=== PATIENT | male | born 1955 | race Caucasian/White ===

== ENCOUNTER 2018-04-09 14:36 | Inpatient (IN) | payer SELFPAY ==
[~2018-04-09 14:36] MED LIST: ISOVUE-370 76%-LOCM 1 ML ONE
[2018-04-09 15:25] LABS: #Monocytes 1.6 thou/uL (0.11-0.59); #Neutrophils 16.3 thou/uL (1.40-6.50); %Eosinophils 0.2 % (0.0-10.0); %Lymphocytes 5.4 % (21.0-51.0); %Monocytes 8.5 % (0.0-10.0); %Neutrophils 85.8 % (42.0-75.0); Hemoglobin 15.6 g/dL (14.0-18.0); Mean Corpuscular HGB CONC 35.7 g/dL (32.0-36.0); Mean Corpuscular Hemoglobin 33.5 pg (27.0-31.0); Mean Platelet Volume 8.3 fL (7.4-10.4); Platelet Count 167 thou/uL (130-400); RBC Distribution Width 11.8 % (11.5-14.5); Red Blood Cell (RBC) Count 4.65 mill/uL (4.70-6.10)
--- NOTE | 2018-04-09 15:33 | RAD ---
1 VIEW CHEST: Date: 04/09/18 HISTORY: Dizziness. Weakness. Back pain. COMPARISON: None. FINDINGS: Normal cardiac silhouette. Pulmonary vessels and hilum are normal. No consolidation or mass. No pneum othorax or osseous abnormalities. IMPRESSION: No acute cardiopulmonary process. POS: JOSE ALFREDO
[2018-04-09 15:51] LABS: ALT (SGPT) 23 U/L (8-55); AST (SGOT) 26 U/L (5-34); Albumin 4.5 g/dL (3.4-4.8); Alkaline Phosphatase 52 U/L (40-150); Anion Gap 15 mmol/L (10-20); BUN (Urea Nitrogen) 17 mg/dL (8.4-25.7); Bilirubin, Total 0.7 mg/dL (0.2-1.2); Calc. Creatinine Clearance 0 mL/min (70-130); Calcium 9.1 mg/dL (7.8-10.44); Carbon Dioxide 19 mmol/L (23-31); Chloride 108 mmol/L (98-107); Estimated GFR-MDRD 66; Globulin 3.1 g/dL (2.4-3.5); Glucose 130 mg/dL (80-115); Potassium 3.4 mmol/L (3.5-5.1); Protein, Total 7.6 g/dL (5.8-8.1); Sodium 139 mmol/L (136-145)
[2018-04-09 15:54] LABS: CKMB 1.6 ng/mL (0-6.6); Troponin I Less than 0.010 ng/mL (< 0.028)
[2018-04-09] MEDS ORDERED: traMADol HCl 50 MG TAB ONE (16:31)
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
[2018-04-09 19:30] LABS: Lactic Acid 1.5 mmol/L (0.5-2.2)
[2018-04-09] MEDS ORDERED: HYDROcodone/Acetaminophen 5/325 mg Tablet ONE (22:14)
[2018-04-09] MEDS ORDERED: Acetaminophen 325 MG TAB PO PRN (23:08)
[2018-04-09] MEDS ORDERED: Bisacodyl 5 MG TAB PO PRN (23:08)
[2018-04-09] MEDS ORDERED: Fleet Enema 133 ML BOT PR PRN (23:08)
[2018-04-09] MEDS ORDERED: Ondansetron HCl/PF 4 MG/2 ML Vial IVP PRN (23:08)
[2018-04-09] MEDS ORDERED: Milk Of Magnesia 30 ML UDCUP PO PRN (23:08)
[2018-04-09] MEDS ORDERED: tiZANidine HCl 4 MG TAB PO SCH (23:30)
[2018-04-09 23:33] VITALS: BMI 25.7
[2018-04-09 23:44] LABS: INR-International Normal Ratio 1.1; PTT 26.6 SEC (22.9-36.1); Prothrombin Time 14.2 SEC (12.0-14.7)
[2018-04-09] MEDS: Sodium Chloride 0.9% 1,000 ML IV SCH (23:58)
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
[2018-04-10 05:23] LABS: #Lymphocytes 1.1 thou/uL (1.20-3.40); #Monocytes 0.9 thou/uL (0.11-0.59); #Neutrophils 7.7 thou/uL (1.40-6.50); %Basophils 0.1 % (0.0-1.0); %Eosinophils 0.2 % (0.0-10.0); %Lymphocytes 11.1 % (21.0-51.0); %Neutrophils 79.5 % (42.0-75.0); Hemoglobin 14.7 g/dL (14.0-18.0); Mean Corpuscular HGB CONC 36.4 g/dL (32.0-36.0); Mean Corpuscular Hemoglobin 34.1 pg (27.0-31.0); Mean Corpuscular Volume 93.7 fL (78.0-98.0); Mean Platelet Volume 8.5 fL (7.4-10.4); Platelet Count 147 thou/uL (130-400); RBC Distribution Width 11.7 % (11.5-14.5); Red Blood Cell (RBC) Count 4.32 mill/uL (4.70-6.10); White Blood Cell (WBC) Count 9.7 thou/uL (4.8-10.8)
[2018-04-10 05:31] LABS: Anion Gap 16 mmol/L (10-20); BUN (Urea Nitrogen) 12 mg/dL (8.4-25.7); Calc. Creatinine Clearance 82 mL/min (70-130); Calcium 8.4 mg/dL (7.8-10.44); Carbon Dioxide 20 mmol/L (23-31); Chloride 107 mmol/L (98-107); Estimated GFR-MDRD 76; Glucose 107 mg/dL (80-115); Potassium 3.7 mmol/L (3.5-5.1); Sodium 139 mmol/L (136-145)
[2018-04-10] MEDS: HYDROcodone/Acetaminophen 5/325 mg Tablet PO PRN ×2 (06:02→11:49)
[2018-04-10] MEDS: Docusate 100 MG CAP PO SCH ×2 (08:50→20:28)
[2018-04-10] MEDS: tiZANidine HCl 4 MG TAB PO SCH ×3 (08:50→20:28)
[2018-04-10] MEDS ORDERED: Famotidine 20 MG TAB PO PRN (11:04)
[2018-04-10] MEDS ORDERED: Eucerin (Mineral Oil/Petrolatum,White) 30 gm Jar TOP PRN (11:04)
[2018-04-10] MEDS ORDERED: Chloraseptic Spray 180 ml Bottle PO PRN (11:04)
[2018-04-10] MEDS ORDERED: Sodium Chloride 0.65% Nasal 44 ML BOT EA NARE PRN (11:04)
[2018-04-10] MEDS ORDERED: Artificial Tears 18 DROP/0.9 ML EA EYE PRN (11:04)
[2018-04-10] MEDS ORDERED: Ondansetron ODT 4 MG TAB PO PRN (11:04)
[2018-04-10] MEDS ORDERED: Loratadine 10 MG TAB PO PRN (11:04)
[2018-04-10] MEDS ORDERED: Loperamide HCl 2 MG CAP PO PRN (11:04)
[2018-04-10] MEDS ORDERED: Mag-Al 1200 mg/1200 mg/30 ML UDCUP PO PRN (11:04)
[2018-04-10] MEDS ORDERED: Temazepam 15 MG CAP PO PRN (11:04)
[2018-04-10] MEDS ORDERED: hydrALAZINE 20 MG/ML VIAL SLOW IVP PRN (11:04)
[2018-04-10] MEDS ORDERED: Diabetic Tussin 200 MG/10 ML UDCUP PO PRN (11:04)
--- NOTE | 2018-04-10 12:50 | PRG ---
DATE OF SERVICE: 04/10/2018 This is a 30 minute initial hospital visit note in which 30 minutes were spent in review of imaging, record, evaluation, examination of patient, and formulation of a plan. Greater than 50% of the time was spent in counseling on Alexander Costa. CHIEF COMPLAINT: L2 coronal split fracture with severe canal compromise and history of a thoracolumb ar fracture in 2010, HISTORY OF PRESENT ILLNESS: Mr. Costa is a 62-year-old man. 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 This is not treated with medication and as such, we will consult Neurology in this regard. He has a history of fall off a roof and sustained at least 3 spinal fractu res. This was not Followed at the time by a spinal surgeon. He evidently went on to heal and he was helping his friend move yesterday lifting large furniture and objects and had acute onset of pain. CT scan demonstrates a pincer fracture with coronal split and severe canal compromise. There is exte nsion into the spinal laminar at L2 with mild wedging at L1. There is also wedging anterior middle c olumn involvement at T11. We are arranging for MRI. PHYSICAL EXAMINATION: He is alert, appropriate. He has mild weakness in his bilateral iliopsoas. He has pain in his low back. We have kept him on spinal precautions. Otherwise, he has intact sensa tion and strength in his lower extremities. He is voiding on his own. IMPRESSION AND PLAN: We will arrange for a TLSO clamshell brace. We will arrange for an MRI of the lumbar spine without contrast. It is very likely this will need to be stabilized as I suspect he had an acute on chronic worsening yesterday while helping his friend move furniture. This is substantia l fracture with severe canal compromise, loss of height and 3 column involvement and also coupled wit h trace weakness in the iliopsoas, again this very likely will need to be stabilized and will likely be a T12-L4 stabilization with L2 laminectomy. We will follow up on the MRI. DIAGNOSIS: L2-3 column fracture.
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
[2018-04-10] MEDS: Sodium Chloride 0.9% 1,000 ML IV SCH (14:53)
[2018-04-10 15:39] LABS: CKMB 1.4 ng/mL (0-6.6); Troponin I Less than 0.010 ng/mL (< 0.028)
--- NOTE | 2018-04-10 15:59 | MRI ---
MRI OF BRAIN WITHOUT CONTRAST 04/10/18 HISTORY: Possible seizure. COMPARISON: None. TECHNIQUE: Brain MRI is performed without intravenous gadolinium administration. Multisequential, multiplanar im aging is performed. FINDINGS: Appropriate T1 marrow signal intensity of the calvarium. Midline brain parenchymal structures are unr emarkable. Central arterial flow voids are maintained. Absent restricted diffusion. Mild mucosal thickening of t he paranasal sinuses. Adequate mastoid air cell aeration. There are scattered T2 and FLAIR white matter hyperintensities likely due to chronic small vessel isc hemic change. Coronal T1 and gradient echo images do not demonstrate any abnormal signal intensity of the hippocamp i. There is no evidence of hemorrhage on the coronal gradient echo sequence. IMPRESSION: 1. Age appropriate atrophy. 2. Chronic small vessel ischemic change of the white matter. 3. Absent restricted diffusion. No acute infarct. POS: JOSE ALFREDO
--- NOTE | 2018-04-10 16:12 | MRI ---
MRI OF THE LUMBAR SPINE WITHOUT CONTRAST 04/10/18 INDICATION: History of lumbar spinal stenosis and lumbar burst fracture. COMPARISON: CT of the lumbar spine dated 04/09/18. FINDINGS: As seen on the comparison CT is a prominent burst fracture involving L2 with retropulsion of bone fra gments from the posterior and posterior superior margin of the L2 vertebral body causing severe narro wing of the central canal. This does induce some displacement of the traversing cauda equina nerve ro ots at the L2 vertebral level. There is additional inferior end plate compression fracture involving the anterior inferior aspect of L1. There is a chronic compression abnormality involving T11. The conus is seen to terminate at appr oximately T12-L1. The visualized retroperitoneum is unremarkable appearing. At L5-S1, there is a broad based disc bulge without appreciable central canal or neural foraminal emily rowing. At L4-5, there is no appreciable central canal or neural foraminal narrowing. At L3-4, there is mild facet joint degenerative change with broad based bulge without appreciable loy tral canal or neural foraminal narrowing. At L2-3, there is mild facet joint degenerative change without appreciable central canal or neural fo raminal narrowing. At L1-2, no appreciable neural foraminal narrowing or central canal narrowing is evident. At T12-L1, there is no appreciable central canal or neural foraminal narrowing evident. At T11-T12, there is no appreciable central canal or neural foraminal narrowing. IMPRESSION: 1. Acute burst fracture of L2 with severe narrowing of the central canal causing some impingemen t of the traversing lumbosacral nerve roots. 2. Acute inferior end plate compression abnormality involving the anterior inferior aspect of L1 . 3. Chronic T11 wedge compression abnormality. 4. Mild multilevel disc degenerative facet osteoarthritic change. POS: JOSE ALFREDO
[2018-04-10 18:56] LABS: CKMB 1.4 ng/mL (0-6.6); Troponin I Less than 0.010 ng/mL (< 0.028)
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
[2018-04-11] MEDS: HYDROcodone/Acetaminophen 5/325 mg Tablet PO PRN (03:52)
[2018-04-11] MEDS: Sodium Chloride 0.9% 1,000 ML IV SCH ×2 (03:56→16:04)
[2018-04-11] MEDS: tiZANidine HCl 4 MG TAB PO SCH ×3 (09:41→20:24)
[2018-04-11] MEDS: Docusate 100 MG CAP PO SCH ×2 (09:41→20:24)
[2018-04-11] MEDS ORDERED: Fentanyl 250 MCG/5 ML VIAL ONE (10:36)
[2018-04-11] MEDS ORDERED: Sodium Chloride 0.9% 0 ML ONE (12:08)
[2018-04-11] MEDS ORDERED: Thrombin 5000 UNITS/5 ML VIAL ONE (12:08)
[2018-04-11] MEDS ORDERED: CEFAZOLIN/Water 2 GM/20 ML SYRINGE ONE (12:17)
[2018-04-11] MEDS ORDERED: Rocuronium Bromide 50 MG/5 ML VIAL ONE (13:01)
--- NOTE | 2018-04-11 13:37 | PDOC.PN ---
- Subjective Encounter Start Date: 04/11/18 Encounter Start Time: 10:30 Patient seen and examined for med mngt. No new complaints. No overnight events - Objective Resuscitation Status: Resuscitation Status FULL:Full Resuscitation MAR Reviewed: Yes Vital Signs & Weight: Vital Signs (12 hours) Temp Pulse Resp BP BP Pulse Ox 04/11/18 09:30 98.3 F 73 18 04/11/18 07:35 98.3 F 73 18 116/70 93 L 04/11/18 04:02 98.2 F 75 16 139/78 92 L Weight Weight 169 lb 3.2 oz I&O: 04/10/18 04/11/18 04/12/18 06:59 06:59 06:59 Intake Total 930 3985 Output Total 550 2475 Balance 380 1510 Result Diagrams: 04/10/18 04:50 04/10/18 04:50 Radiology Reviewed by me: Yes (CXR - neg Echo - normal EF) Phys Exam - Physical Examination Constitutional: NAD Respiratory: no wheezing, no rhonchi Cardiovascular: RRR, no rub Gastrointestinal: soft, non-tender, positive bowel sounds Musculoskeletal: no edema Neurological: moves all 4 limbs Dx/Plan - Plan DVT proph w/SCDs IMPRESSION: 1. Hypokalemia - replaced 2. Small Hiatal Hernia 3. CKD 2 4. Vertebral Compression fracture - Mngt per NSG 5. ?Seizure - declined AED 6. Leucocytosis - ?etio PLAN: AM labs Echo - normal EF Cont current meds as below Review of Systems - Review of Systems Respiratory: negative: Cough, Dry, Shortness of Breath, Hemoptysis, SOB with Excertion, Pleuritic Pain, Sputum, Wheezing Cardiovascular: negative: chest pain, palpitations, orthopnea, paroxysmal nocturnal dyspnea, edema, light headedness, other - Medications/Allergies Allergies/Adverse Reactions: Allergies Allergy/AdvReac Type Severity Reaction Status Date / Time No Known Allergies Allergy Verified 04/09/18 23:35 Medications: Current Medications Acetaminophen (Tylenol) 650 mg PO Q4H PRN PRN Reason: Headache/Fever or Pain Hydrocodone Bitart/Acetaminophen ([place] 5/325) 1 tab PO Q4H PRN PRN Reason: Moderate Pain (4-6) Last Admin: 04/11/18 03:52 Dose: 1 tab Al Hydroxide/Mg Hydroxide (Maalox) 15 ml PO Q4H PRN PRN Reason: Heartburn or Indigestion Artificial Tears (Tears Naturale) 0 drop EA EYE PRN PRN PRN Reason: Dry Eyes Bisacodyl (Dulcolax) 10 mg PO DAILYPRN PRN PRN Reason: Constipation Docusate Sodium (Colace) 100 mg PO BID [facility] Last Admin: 04/11/18 09:41 Dose: Not Given Famotidine (Pepcid) 20 mg PO BIDPRN PRN PRN Reason: Heartburn or Indigestion Guaifenesin (Robitussin Sf) 200 mg PO Q4H PRN PRN Reason: Cough Hydralazine HCl (Apresoline) 10 mg SLOW IVP Q4H PRN PRN Reason: Systolic BP > 180 Sodium Chloride (Normal Saline 0.9%) 1,000 mls @ 75 mls/hr IV .[id number] [facility] Last Admin: 04/11/18 03:56 Dose: 1,000 mls Loperamide HCl (Imodium) 2 mg PO PRN PRN PRN Reason: Diarrhea/Loose Stools Loratadine (Claritin) 10 mg PO DAILYPRN PRN PRN Reason: Sinus Symptoms Magnesium Hydroxide (Milk Of Magnesium) 30 ml PO DAILYPRN PRN PRN Reason: Constipation Last Admin: 04/10/18 14:50 Dose: 30 ml Mineral Oil/White Petrolatum (Eucerin Cream) 0 gm TOP BIDPRN PRN PRN Reason: Dry Skin Morphine Sulfate (Morphine) 2 mg SLOW IVP Q1H PRN PRN Reason: Severe Pain (7-10) Ondansetron HCl (Zofran) 4 mg IVP Q6H PRN PRN Reason: Nausea/Vomiting Ondansetron HCl (Zofran Odt) 4 mg PO Q6H PRN PRN Reason: Nausea/Vomiting Phenol (Chloraseptic [place] 180 Ml Bot) 0 ml PO PRN PRN PRN Reason: Sore Throat Sodium Chloride (Flush - Normal Saline) 10 ml IVF Q12HR [facility] Last Admin: 04/11/18 09:41 Dose: Not Given Sodium Chloride (Flush - Normal Saline) 10 ml IVF PRN PRN PRN Reason: Saline Flush Sodium Chloride ([place] Nasal [place] 0.65%) 0 ml EA NARE QIDPRN PRN PRN Reason: Nasal Congestion Temazepam (Restoril) 15 mg PO HSPRN PRN PRN Reason: Insomnia Tizanidine HCl (Zanaflex) 4 mg PO TID [facility] Last Admin: 04/11/18 09:41 Dose: Not Given
[2018-04-11] MEDS ORDERED: Bacitracin Zinc Ointment 30 gm TUBE ONE (14:57)
[2018-04-11] MEDS ORDERED: Sodium Chloride 0.9% 20 ML ONE (14:57)
[2018-04-11] MEDS ORDERED: Dexamethasone 20 MG/5 ML VIAL ONE (15:02)
[2018-04-11] MEDS ORDERED: PROPOFOL 200 MG/20 ML VIAL ONE (15:02)
[2018-04-11] MEDS ORDERED: Glycopyrrolate 0.2 MG/ML 5 ML SYRINGE ONE (15:02)
[2018-04-11] MEDS ORDERED: PHENYLEPHRINE-NS 100 MCG/ML 10 ML SYRINGE ONE (15:02)
[2018-04-11] MEDS ORDERED: Lidocaine 1% PF 5 ML VIAL ONE (15:02)
[2018-04-11] MEDS ORDERED: Ondansetron HCl/PF 4 MG/2 ML Vial ONE (15:02)
[2018-04-11] MEDS ORDERED: ePHEDrine/0.9% NaCl/PF SYRINGE 50 mg/10 ml ONE (15:02)
[2018-04-11 16:15] LABS: Hemoglobin 13.3 g/dL (14.0-18.0)
[2018-04-11] MEDS ORDERED: Promethazine HCl 25 MG/ML VIAL IM PRN (17:06)
[2018-04-11] MEDS ORDERED: Ondansetron HCl/PF 4 MG/2 ML Vial IVP PRN (17:06)
[2018-04-11] MEDS ORDERED: Promethazine HCl 25 MG/ML VIAL SLOW IVP PRN (17:06)
[2018-04-11] MEDS ORDERED: Fentanyl 100 MCG/2 ML VIAL ONE ×2 (17:08→17:32)
--- NOTE | 2018-04-11 18:11 | PRG ---
DATE OF SERVICE: 04/11/[address] Costa' CT and MRI. He has acute exacerbation of a severe L2-3 column fracture with sev ere stenosis resulting in significant canal compromise. He has also significant pain and really brian ot tolerate any change in position of bed other than lying flat. We have obtained a brace for him an d he has evidence of iliopsoas weakness bilaterally. He has been able to void on his own. This is a highly unstable fracture with severe canal compromise. There is also a slight wedging at L 1 and the MRI indicates no evidence of new edema at the T11 fracture. As such, I have let the patien t know that I have recommended surgery. He has not tolerated the brace over the last 24 hours and ob viously this would be the only alternative, but again in my recommendation, this is not a fracture th at would be adequately treated with bracing alone. As such, I have recommended surgery which would b e a T12-L4 stabilization procedure and essentially a bottom of L1 to top of L3 decompression of L1-L2 and L2-L3 decompression to maximize decompression and from the bottom of L1 to the top of L3. The p atient understands that if we do not proceed with surgery, we will try and begin to mobilize him that the fracture fragments. Given the acute nature, could retropulse further resulting in a potentially permanent neurologic impairment such as paraplegia in addition to his spinal deformity. As such, th e patient would like to proceed with surgery. Informed consent, goals, indications, risks, benefits, alternatives are discussed in detail with the patient regarding T12-L4 stabilization with posterior screw bridget fixation fusion, local bone autograft obtained from same incision allograft with bottom of L1 to top of L3 decompression for treatment of lumbar 3 column fracture. He understands risks are up to and including but not limited to wound healing issues such as infection, dehiscence, CSF leak, te mporary and permanent neurologic deficit, the need for repeat surgeries in the future medical complic ations. Understand these risks and wish that we proceed. DIAGNOSIS: Highly unstable three column fracture of L2 with history of remote fracture at that [facility] nt, now with acute worsening following a lifting.
[2018-04-11] MEDS: CEFAZOLIN/Water 2 GM/20 ML SYRINGE SLOW IVP SCH (20:24)
[2018-04-11] MEDS: Senokot S 8.6-50 MG TAB PO SCH ×2 (20:25→20:26)
[2018-04-11] MEDS ORDERED: CEFAZOLIN 2 GM in Sodium Chloride 0.9% 100 ML IVPB SCH (22:00)
--- NOTE | 2018-04-11 23:10 | OP ---
OR: 12. WOUND TYPE: Type 1 wound. SURGEON: Catracho Richards M.D. UNDERWRITING SERVICE REPRESENTATIVE: Amilcar Mistry PA-C. PREPROCEDURE DIAGNOSES: Highly unstable L2-3 column fracture, severe spinal canal compromise and def ormity. PROCEDURES: 1. Treat lumbar spine fracture with T12, L1, L2, L3, L4 posterior screw bridget fixation. 2. Fusion T12-L1, L1-L2, L2-L3, L3-L4 posterior and posterolateral with local bone autograft obtaine d from same incision and allograft. 3. Prevent deformity with treatment of fracture and screw bridget fixation, T12, L1, L2, L3, L4. 4. L1-L2, L2-L3 laminectomies for complete decompression and the bottom of L1 to top of L3 to maximi ze decompression of cauda equina and prevent worsening neurologic deficit. PROCEDURE: After informed consent was obtained from the patient, the patient was brought to OR 12. Proper patient pause and identification was carried out. He was then placed in excellent general end otracheal anesthesia and carefully positioned prone on the OR table. All appropriate points were pad ded. We identified a linear kishor to allow for approach posteriorly from the T12, L1, L2, L3 and L4 s egments. This region was sterilely cleansed, prepared, and draped. Proper patient pause and identif ication was carried out. The wound was then opened with a combination of sharp, monopolar and blunt dissection to expose the T12, L1, L2, L3, L4, dorsal spines lamina and transverse processes and facet complexes. Localization film confirmed our area of interest. We identified at the L2 segment. A f racture through the lamina on the right side as the CT scan indicated it would be. We also identifie d left transverse process fracture at L2. We then placed pedicle screw bridget fixation at the T12, L1, L2, L3, L4 with gross and fluoroscopic visualization. Rods were placed and Final tightening occurred . We then performed decompression L1-L2, L2-L3 to maximize decompression throughout. The expanse of the fracture and maximize canal diameter. A crosslink was then placed and final tightening occurred . Copious irrigation occurred throughout as well. Hemostasis was maximized throughout and was at ti mes, a bit challenging as the patient did have significant edema and muscular edema and the times mad e hemostasis challenging. Nevertheless, copious irrigation again occurred as did maximizing hemostas is. We then decorticated the posterior and posterolateral regions and bone graft was placed from T12 -L1, L1-L2, L2-L3 and L3-L4 bilaterally for arthrodesis. Final tightening had occurred. The wound w as then closed in anatomic layers over a drain following the sprinkling of vancomycin. The patient w as then emerged from anesthesia.
[2018-04-12] MEDS: CEFAZOLIN/Water 2 GM/20 ML SYRINGE SLOW IVP SCH ×3 (03:25→21:10)
[2018-04-12] MEDS: Sodium Chloride 0.9% 1,000 ML IV SCH ×2 (05:49→19:24)
[2018-04-12] MEDS: HYDROcodone/Acetaminophen 5/325 mg Tablet PO PRN ×4 (05:52→18:15)
[2018-04-12 05:53] LABS: Anion Gap 12 mmol/L (10-20); BUN (Urea Nitrogen) 14 mg/dL (8.4-25.7); Calc. Creatinine Clearance 80 mL/min (70-130); Carbon Dioxide 25 mmol/L (23-31); Chloride 105 mmol/L (98-107); Estimated GFR-MDRD 74; Glucose 134 mg/dL (80-115); Magnesium 2.2 mg/dL (1.6-2.6); Potassium 4.3 mmol/L (3.5-5.1); Sodium 138 mmol/L (136-145)
[2018-04-12 06:31] LABS: #Lymphocytes 0.9 thou/uL (1.20-3.40); #Monocytes 1.2 thou/uL (0.11-0.59); #Neutrophils 8.3 thou/uL (1.40-6.50); %Basophils 0.1 % (0.0-1.0); %Eosinophils 0.2 % (0.0-10.0); %Lymphocytes 8.2 % (21.0-51.0); %Monocytes 11.3 % (0.0-10.0); %Neutrophils 80.2 % (42.0-75.0); Hemoglobin 11.7 g/dL (14.0-18.0); Mean Corpuscular HGB CONC 35.4 g/dL (32.0-36.0); Mean Corpuscular Hemoglobin 33.5 pg (27.0-31.0); Mean Corpuscular Volume 94.4 fL (78.0-98.0); Mean Platelet Volume 8.6 fL (7.4-10.4); PLT Morphology Comment Appears Decreased; Platelet Count 119 thou/uL (130-400); RBC Distribution Width 11.6 % (11.5-14.5); White Blood Cell (WBC) Count 10.4 thou/uL (4.8-10.8)
[2018-04-12] MEDS: Docusate 100 MG CAP PO SCH ×2 (09:06→21:11)
[2018-04-12] MEDS: tiZANidine HCl 4 MG TAB PO SCH ×3 (09:06→21:10)
[2018-04-12] MEDS: Polyethylene Glycol 3350 17 GM Packet PO SCH (09:06)
[2018-04-12] MEDS: Senokot S 8.6-50 MG TAB PO SCH ×2 (09:06→21:11)
--- NOTE | 2018-04-12 14:25 | PRG ---
DATE OF SERVICE: 04/12/2018 Mr. Costa is postoperative day 1 from T12-L4 stabilization with L1-L3 decompression for a 3-column u nstable burst fracture at L2 with severe canal compromise and cauda equina compression. He has alrea dy been up mobilizing well with his brace on. He has excellent strength throughout his lower extremi ty myotomes. In fact, I think that his iliopsoas weakness has improved as well. He feels as if his pain is significantly improved compared to before surgery. Obviously, he has muscle pain related to his surgery. We will work towards initiation of rehabilitation. We will keep his drain in place. I t has put out 70 mL since surgery. I should note that his hemoglobin this morning is 11.7. He start ed with a hemoglobin of 14.7 and decreased to 13.3. There was a concern of his blood loss, certainly what I would expect with a 5 level fusion. However, a hemoglobin that decreases from 14.7-13.3 and then 11.7 this morning would indicate that it is not a substantial change or concern. His vital sign s are stable. We will continue to mobilize him in the postoperative period.
--- NOTE | 2018-04-12 16:21 | PDOC.PN ---
- Subjective Encounter Start Date: 04/12/18 Encounter Start Time: 16:19 Mr. Costa was seen today in follow-up of L2 Burst Fracture. He says the is a little better today than last night. He has noted some difficulty with getting his bowels to move. - Objective Resuscitation Status: Resuscitation Status FULL:Full Resuscitation Vital Signs & Weight: Vital Signs (12 hours) Temp Pulse Resp BP Pulse Ox 04/12/18 15:10 98.4 F 73 12 144/79 H 95 04/12/18 11:20 98.2 F 75 12 93/84 95 04/12/18 09:00 98.9 F 70 12 04/12/18 07:10 98.9 F 70 12 143/73 H 94 L Weight Weight 169 lb 3.2 oz I&O: 04/11/18 04/12/18 04/13/18 06:59 06:59 06:59 Intake Total 3985 1340 Output Total 2475 3070 Balance 1510 -1730 Result Diagrams: 04/12/18 05:02 04/12/18 05:02 Phys Exam - Physical Examination HEENT: PERRLA Respiratory: no wheezing, no rales, no rhonchi, clear to auscultation bilateral Cardiovascular: RRR, no significant murmur, no rub Gastrointestinal: soft + Mild distention, tympanic to percussion, BS present Musculoskeletal: no edema Dx/Plan (1) L2 vertebral fracture Code(s): S32.029A - UNSP FRACTURE OF SECOND LUMBAR VERTEBRA, INIT FOR CLOS FX Status: Acute (2) Seizure disorder Code(s): G40.909 - EPILEPSY, UNSP, NOT INTRACTABLE, WITHOUT STATUS EPILEPTICUS Status: Chronic - Plan * L2 Burst Fracture- patient is s/p surgery to stabilize the fracture * Symptom control- he states his pain is improving * Seizure disorder- he has declined AED * Continue PT/OT as tolerated.
--- NOTE | 2018-04-12 17:33 | EKG ---
Test Reason : BACK PIAN Blood Pressure : / mmHG Vent. Rate : 068 BPM Atrial Rate : 068 BPM P-R Int : 158 ms QRS Dur : 138 ms QT Int : 428 ms P-R-T Axes : 059 041 025 degrees QTc Int : 455 ms Normal sinus rhythm Right bundle branch block Abnormal ECG Confirmed by RAYMON NOGUERA M.D. ([id number]), legal editor KEERTHI PEREZ ([id number] on 04/12/2018 5:32:33 PM Referred By: Confirmed By:RAYMON NOGUERA M.D.
[2018-04-12] MEDS: Bisacodyl 10 MG SUPP PR PRN (21:22)
[2018-04-13] MEDS: HYDROcodone/Acetaminophen 5/325 mg Tablet PO PRN ×3 (03:54→21:53)
[2018-04-13] MEDS: CEFAZOLIN/Water 2 GM/20 ML SYRINGE SLOW IVP SCH ×3 (03:55→22:00)
[2018-04-13] MEDS: Sodium Chloride 0.9% 1,000 ML IV SCH ×2 (06:11→21:58)
[2018-04-13] MEDS: Polyethylene Glycol 3350 17 GM Packet PO SCH (08:43)
[2018-04-13] MEDS: Senokot S 8.6-50 MG TAB PO SCH ×2 (08:43→21:57)
[2018-04-13] MEDS: Docusate 100 MG CAP PO SCH ×2 (08:43→21:57)
[2018-04-13] MEDS: tiZANidine HCl 4 MG TAB PO SCH ×3 (09:52→21:56)
--- NOTE | 2018-04-13 11:08 | PRG ---
DATE OF SERVICE: 04/13/2018 SUBJECTIVE: Mr. Costa continues to demonstrate improvement in the postoperative period. The bigges t issue is he has some flatus, but feels somewhat constipated. We will work on a bowel regimen form, but I have encouraged him to continue to mobilize as it is going to help his bowels were working on disposition as well.
--- NOTE | 2018-04-13 15:07 | PDOC.PN ---
- Subjective Encounter Start Date: 04/13/18 Encounter Start Time: 15:05 Mr. Costa was seen today in follow-up for medical management, post Lumbar laminectomy and fusion. He does not have any major complaints. He had a bowel movement today, but says that after that his " bowels locked up again". - Objective Resuscitation Status: Resuscitation Status FULL:Full Resuscitation MAR Reviewed: Yes Vital Signs & Weight: Vital Signs (12 hours) Temp Pulse Resp BP BP Pulse Ox 04/13/18 12:00 98.9 F 83 12 93/66 94 L 04/13/18 08:00 98.8 F 73 14 150/61 H 96 04/13/18 04:00 98.7 F 75 20 146/80 H 95 Weight Weight 169 lb 3.2 oz I&O: 04/12/18 04/13/18 04/14/18 06:59 06:59 06:59 Intake Total 1340 1915 Output Total 3070 4390 Balance -1730 -2475 Result Diagrams: 04/12/18 05:02 04/12/18 05:02 Phys Exam - Physical Examination HEENT: PERRLA Respiratory: no wheezing, no rales, no rhonchi, clear to auscultation bilateral Cardiovascular: RRR, no significant murmur, no rub Gastrointestinal: soft, non-tender, no distention, positive bowel sounds Musculoskeletal: edema present Dx/Plan (1) L2 vertebral fracture Code(s): S32.029A - UNSP FRACTURE OF SECOND LUMBAR VERTEBRA, INIT FOR CLOS FX Status: Acute (2) Seizure disorder Code(s): G40.909 - EPILEPSY, UNSP, NOT INTRACTABLE, WITHOUT STATUS EPILEPTICUS Status: Chronic - Plan * Seizure disorder- stable- he has decided against AED * Post Lumbar Laminectomy and fusion- stable- continue PT/OT * Constipation- continue medications as needed including stool softeners, and laxatives as needed .
[2018-04-14] MEDS: CEFAZOLIN/Water 2 GM/20 ML SYRINGE SLOW IVP SCH ×3 (05:05→21:46)
[2018-04-14] MEDS: Docusate 100 MG CAP PO SCH ×2 (09:16→21:46)
[2018-04-14] MEDS: Polyethylene Glycol 3350 17 GM Packet PO SCH (09:16)
[2018-04-14] MEDS: Senokot S 8.6-50 MG TAB PO SCH ×2 (09:17→21:46)
[2018-04-14] MEDS: tiZANidine HCl 4 MG TAB PO SCH ×3 (09:17→21:58)
[2018-04-14] MEDS: Sodium Chloride 0.9% 1,000 ML IV SCH (09:26)
[2018-04-14] MEDS ORDERED: Gabapentin 100 MG CAP PO SCH (09:45)
[2018-04-14] MEDS: HYDROcodone/Acetaminophen 5/325 mg Tablet PO PRN ×2 (11:09→21:45)
--- NOTE | 2018-04-14 11:19 | PDOC.PN ---
- Subjective Encounter Start Date: 04/14/18 Encounter Start Time: 11:16 Mr. Costa was seen today in follow-up of medical management following lumbar laminectomy. He continues to complain of feeling constipated. He also notes some pain and numbness in his right leg. - Objective Resuscitation Status: Resuscitation Status FULL:Full Resuscitation MAR Reviewed: Yes Vital Signs & Weight: Vital Signs (12 hours) Temp Pulse Resp BP Pulse Ox 04/14/18 08:00 98.8 F 64 12 154/84 H 95 04/14/18 04:00 98.8 F 63 18 131/76 95 04/14/18 00:00 98.9 F 75 17 105/62 95 Weight Weight 169 lb 3.2 oz I&O: 04/13/18 04/14/18 04/15/18 06:59 06:59 06:59 Intake Total 1915 1240 Output Total 4300 1950 Balance -8044 -052 Result Diagrams: 04/12/18 05:02 04/12/18 05:02 Phys Exam - Physical Examination HEENT: PERRLA Respiratory: no wheezing, no rales, no rhonchi, clear to auscultation bilateral Cardiovascular: RRR, no significant murmur, no rub Gastrointestinal: soft, positive bowel sounds Musculoskeletal: no edema Dx/Plan (1) L2 vertebral fracture Code(s): S32.029A - UNSP FRACTURE OF SECOND LUMBAR VERTEBRA, INIT FOR CLOS FX Status: Acute (2) Seizure disorder Code(s): G40.909 - EPILEPSY, UNSP, NOT INTRACTABLE, WITHOUT STATUS EPILEPTICUS Status: Chronic - Plan * Seizure disorder- stable- the patient refuses AED * Constipation- continue scheduled colace, sennakot, and Miralax. Dulcolax suppositories as needed ( he did not know he could request this ) * s/p Lumbar Laminectomy- continue PT/OT.
--- NOTE | 2018-04-14 11:44 | PRG ---
DATE OF SERVICE: 04/14/2018 Mr. Costa is now postoperative day #4, having undergone multilevel thoracolumbar fusion for L2 burst fracture. The patient states that he was up walking quite a bit yesterday and is experiencing right anterior thigh numbness and some increased pain. He does continue to have incisional back pain. Hi s drain output has been around 290 mL over the last 24 hours, so we will continue his Ancef as well a s the drain. He continues to have very good strength in the bilateral lower extremities. His incisi on is uncovered and it is clean, dry, and intact without drainage and closed with sherin. Our plan today is to continue to mobilize and work with case management to help with discharge planning for th e patient. He may be a good candidate for inpatient rehab given the fact that he has no social suppo rt at home as he is from out of town. Continue Ancef for the drain and we will work on a bowel regim en for the patient as he would like to have a bowel movement. I have also started gabapentin 100 mg t.i.d. to see if this will help with his right anterior thigh numbness and tingling as well as pain. We will continue to monitor the patient. Please call with any changes in patient's neurologic exam, otherwise he is continuing to recover well.
--- NOTE | 2018-04-14 14:53 | OP ---
DATE OF PROCEDURE: 04/11/2018 SURGEON: Catracho Richards M.D. RECOVERY AGENT SURGEON: Amilcar Mistry PA-C. PREOPERATIVE DIAGNOSIS: L2 burst fracture. PROCEDURE: T12-L4 posterior screw and bridget fixation with fixation of L2 burst fracture, use of BMP. POSTOPERATIVE FINDINGS: L2 burst fracture. ESTIMATED BLOOD LOSS: 1200 mL. SPECIMEN REMOVED: None.
[2018-04-14] MEDS: Gabapentin 100 MG CAP PO SCH ×2 (15:46→21:47)
[2018-04-14] MEDS: Bisacodyl 10 MG SUPP PR PRN (22:08)
[2018-04-15] MEDS: Sodium Chloride 0.9% 1,000 ML IV SCH ×2 (00:40→11:38)
[2018-04-15] MEDS: CEFAZOLIN/Water 2 GM/20 ML SYRINGE SLOW IVP SCH (06:49)
[2018-04-15] MEDS: Docusate 100 MG CAP PO SCH ×2 (09:42→20:39)
[2018-04-15] MEDS: Gabapentin 100 MG CAP PO SCH ×3 (09:42→20:39)
[2018-04-15] MEDS: Senokot S 8.6-50 MG TAB PO SCH ×2 (09:42→20:39)
[2018-04-15] MEDS: tiZANidine HCl 4 MG TAB PO SCH ×3 (09:43→20:53)
[2018-04-15] MEDS: Polyethylene Glycol 3350 17 GM Packet PO SCH (10:15)
--- NOTE | 2018-04-15 10:17 | PRG ---
DATE OF SERVICE: 04/15/2018 Mr. Costa is now postoperative day #5, having undergone a multilevel thoracic and lumbar fusion for L2 burst fracture. The patient is recovering well. He had a bowel movement yesterday and states he is feeling better. His drain output has been decreasing and therefore will be removed now. I have a lso discontinued his Ancef. He continues to have good strength in the bilateral lower extremities. His incision is covered with a dressing, but it is dry with very scant amount of drainage. His drain was removed without difficulty. The patient more or less has met criteria for discharge. We are wa iting on possible [facility] care for inpatient rehab. If this cannot be completed, the patient states that he would like to go home to [place] and will arrange a neurosurgical care when he is home. We wi ll follow up on this later today, but may be ready for dismissal as early as today. We will check ba ck on the status of his rehab. Please call with any changes in patient's neurologic status.
--- NOTE | 2018-04-15 15:43 | PDOC.PN ---
- Subjective Encounter Start Date: 04/15/18 Encounter Start Time: 15:42 Mr. Costa was seen today in follow-up of Lumbar fracture. He says he managed to find a position which doesn't cause pain. - Objective Resuscitation Status: Resuscitation Status FULL:Full Resuscitation MAR Reviewed: Yes Vital Signs & Weight: Vital Signs (12 hours) Temp Pulse Resp BP BP BP Pulse Ox 04/15/18 11:53 97.7 F 86 16 128/84 97 04/15/18 08:00 98.3 F 67 16 99 04/15/18 07:46 98.3 F 67 16 154/82 H 99 04/15/18 04:01 98.6 F 68 19 126/73 97 Weight Weight 169 lb 3.2 oz I&O: 04/14/18 04/15/18 04/16/18 06:59 06:59 06:59 Intake Total 1240 1200 Output Total 1950 1575 Balance -710 375 Result Diagrams: 04/12/18 05:02 04/12/18 05:02 Phys Exam - Physical Examination HEENT: PERRLA Respiratory: no wheezing, no rales, no rhonchi, clear to auscultation bilateral Cardiovascular: RRR, no significant murmur, no rub Gastrointestinal: soft, non-tender, no distention, positive bowel sounds Musculoskeletal: no edema Dx/Plan (1) L2 vertebral fracture Code(s): S32.029A - UNSP FRACTURE OF SECOND LUMBAR VERTEBRA, INIT FOR CLOS FX Status: Acute (2) Seizure disorder Code(s): G40.909 - EPILEPSY, UNSP, NOT INTRACTABLE, WITHOUT STATUS EPILEPTICUS Status: Chronic - Plan * Seizure disorder- he has refused AED. No seizures reported * Lumbar vertebral fracture- s/p surgery- stable * He was not financially approved for Rehab * Plan is for discharge home tomorrow.
[2018-04-16] MEDS: HYDROcodone/Acetaminophen 5/325 mg Tablet PO PRN ×2 (03:58→08:19)
[2018-04-16] MEDS: Sodium Chloride 0.9% 1,000 ML IV SCH (04:15)
[2018-04-16 07:31] VITALS: BP 149/90; TEMP 98.3
[2018-04-16] MEDS: Gabapentin 100 MG CAP PO SCH (08:19)
[2018-04-16] MEDS: tiZANidine HCl 4 MG TAB PO SCH (08:19)
--- NOTE | 2018-04-16 14:04 | DIS ---
DATE OF ADMISSION: 04/09/2018 DATE OF DISCHARGE: 04/16/2018 DISCHARGE DIAGNOSES: 1. Lumbar burst fracture. 2. Low back pain. 3. History of seizure disorder. HOSPITAL COURSE: Mr. Costa was admitted from [facility] due to an acute lumbar to co kyung split burst fracture. At that time, he had a debilitating back pain, but no leg pain or leg we akness and he had not had any falls. He was later taken to the OR to undergo T12-L4 posterior thorac olumbar fusion and fixation of L2 burst fracture and use of BMP. The patient tolerated the procedure well and recovered several overnights on the surgical floor. He did have a significant amount of dr alessio output for several days, but this eventually tapered off and we were able to remove the drain. Yinka bai attempted to get inpatient rehab approved through [facility] as the patient is uninsured, but pooja carrasquillo was not approved and the patient was sent home with a family friend. He has asked to follow up in [place] where he is from [facility]. We are agreeable to this with the understanding that his sherin will be removed by postoperative day 17-21 and that he will wear his clamshell TLSO brace anytime he is out of bed for the next 12 weeks post-injury. I have reminded him of appropriate postoperative a ctivity restrictions. I have also asked him to keep his incision covered. At the time of discharge, he was experiencing some numbness and tingling and some slight pain into the right anterior thigh. However, was sent home with gabapentin. Hospitalists were also following the patient as well as Neur ology, but the patient refused antiepileptic drugs given his seizure disorder due to financial reason s as well as that he did not want to take any for his possible seizure disorder. Supposedly he has n ot had any recent seizures. PHYSICAL EXAMINATION: The patient had good strength in the bilateral lower extremities and his dress ing was clean, dry and intact. Certainly he understands to call the office with questions or concern s or should he need follow up in the future. Again, I have reiterated how important it is that he esteban ve his sherin removed within the correct time period and to continue to wear his brace when out of b ed. The patient was doing well postoperatively at the time of discharge.
--- NOTE | 2018-04-17 02:47 | DIS ---
DATE OF ADMISSION: 04/09/2018 DATE OF CONSULTATION: 04/10/2018 DATE OF DISCHARGE: 04/16/2018 PRIMARY CARE PHYSICIAN: The patient does not have primary care physician. DISCHARGE DISPOSITION: Home. DISCHARGE DIAGNOSES: 1. L2 burst fracture. 2. Seizure disorder with probable acute recent seizure. 3. History of possible transient ischemic attack or mini stroke. DISCHARGE MEDICATIONS: There was no medications at discharge. These will likely have been prescribe d by Neurosurgery. PROCEDURES DONE DURING ADMISSION: The patient had an MRI of the lumbar spine showing acute burst fra cture of L2 with severe narrowing of the central canal causing some impingement of the traversing lum bosacral nerve roots. There is acute inferior endplate compression abnormality involving the anterio r inferior aspect of L1. 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 The patient had an MRI of the brain showing age appropriate atrophy, chronic small vessel ischemic ch lizy to the white matter and absence of restriction diffusion. There was no acute infarct and echoca rdiogram in which the ejection fraction was estimated at 55%-60%. There was moderate mitral regurgit ation. CODE STATUS: FULL CODE. ALLERGIES: No known drug allergies. HOSPITAL COURSE: Mr. Costa is a 62-year-old gentleman who presented himself to the emergency room a fter he suffered the sudden onset of severe lower back pain. The patient says he had an episode of l apse and consciousness, where it is possible that he may have suffered a seizure. This may have led up to the lumbar fracture. He was admitted and seen by Neurosurgery. It was felt that the fracture was severe and unstable and as a result, the patient underwent lumbar fusion and also laminectomy. T he Hospitalist service was consulted for medical management. The patient was evaluated with regard t o the possible seizure and loss of consciousness. An MRI of the brain was done, which was negative f or stroke. He was seen by Neurology and admitted to a history of seizures, but he has failed to take any antiepileptic drugs until now and refused any antiepileptic drugs when he was evaluated by our n eurologist. He had an uneventful postoperative course and was discharged home in stable condition on 04/16/2018.
== END 2018-04-16 08:56 | disposition home or self-care (01) | DRG 460 ==
LOC: ERS 14:36 → SURG B 22:56
PROVIDERS: ADMIT Surgery; ATTEND Surgery
PROC: 0RGA071 Fusion of Thoracolumbar Vertebral Joint with Autologous Tissue Substitute, Posterior Approach, Posterior Column, Open Approach (ICD-10-PCS; principal; 2018-04-11)
PROC: 0SG0071 Fusion of Lumbar Vertebral Joint with Autologous Tissue Substitute, Posterior Approach, Posterior Column, Open Approach (ICD-10-PCS; 2018-04-11)
PROC: 0QS004Z Reposition Lumbar Vertebra with Internal Fixation Device, Open Approach (ICD-10-PCS; 2018-04-11)
PROC: 3E0V0GB Introduction of Recombinant Bone Morphogenetic Protein into Bones, Open Approach (ICD-10-PCS; 2018-04-11)
DX: S32.022A Unstable burst fracture of second lumbar vertebra, initial encounter for closed fracture (principal); M48.54XA Collapsed vertebra, not elsewhere classified, thoracic region, initial encounter for fracture; M48.56XA Collapsed vertebra, not elsewhere classified, lumbar region, initial encounter for fracture; G83.4 Cauda equina syndrome; G40.909 Epilepsy, unspecified, not intractable, without status epilepticus; Z86.73 Personal history of transient ischemic attack (TIA), and cerebral infarction without residual deficits; I34.0 Nonrheumatic mitral (valve) insufficiency; M47.27 Other spondylosis with radiculopathy, lumbosacral region; Z91.14 Patient's other noncompliance with medication regimen; Z91.120 Patient's intentional underdosing of medication regimen due to financial hardship; Z87.891 Personal history of nicotine dependence; I45.10 Unspecified right bundle-branch block; E87.6 Hypokalemia; K59.00 Constipation, unspecified
CPT/HCPCS: 36415; 70551; 71045; 72148; 74177; 76001; 80048; 80053; 82553; 83605; 83735; 84146; 84484; 85014; 85018; 85025; 85610; 85652; 85730; 86140; 86850; 86900; 86901; 93005; 93306; A4216; C1713; C1768; G8978-GP-CL; G8979-GP-CJ; G8987-GO-CJ; G8988-GO-CI; J1100; J2001; J2405; J2704; J3010; J3370; J3490; L0639